=== PATIENT | female | born 1940 | race Caucasian/White ===

== ENCOUNTER 2017-06-05 19:31 | Inpatient (IN) | payer MEDICARE, OTHER ==
[~2017-06-05] VITALS: Ht 172.7 cm; Wt 61.7 kg
[~2017-06-05 19:31] MED LIST: DICY10CA53 PO; ESOM40CA PO; HYDR-3240 PO; LEVO100T5 PO; META10TA PO; MONT10TA9 PO; PRED5TAB PO
[2017-06-05] MEDS ORDERED: SODIUM CHLORIDE 0.9% 1,000 ML IV ONE (19:51)
[2017-06-05] MEDS ORDERED: ACETAMINOPHEN 325 MG TABLET ONE (19:54)
[2017-06-05] MEDS ORDERED: ACETAMINOPHEN 325 MG TABLET PO ONE (20:00)
[2017-06-05] MEDS ORDERED: ALBUTEROL/IPRATROPIUM 2.5MG/0.5MG, 3 ML NPPB ONE (20:00)
[2017-06-05] MEDS ORDERED: SODIUM CHLORIDE FLUSH 10ML SYR IVF ONE (20:00)
[2017-06-05] MEDS ORDERED: chemo IV (20:43)
[2017-06-05 21:13] LABS: BLOOD UREA NITROGEN 10 mg/dL (7-18)
[2017-06-05] MEDS ORDERED: POTASSIUM CHLORIDE 20 MEQ in SODIUM CHLORIDE 0.9% 250 ML IV ONE (21:30)
[2017-06-05] MEDS ORDERED: AZITHROMYCIN 500 MG in SODIUM CHLORIDE 0.9% 250 ML IV ONE (21:30)
[2017-06-05] MEDS ORDERED: SODIUM CHLORIDE 0.9% 1,000ML IVBOLUS ONE (21:30)
[2017-06-05] MEDS ORDERED: POTASSIUM CHLORIDE 20 MEQ TAB.ER.PRT PO ONE (21:30)
[2017-06-05] MEDS ORDERED: POTASSIUM CHLORIDE 20 MEQ TAB.ER.PRT ONE (21:37)
[2017-06-05] MEDS ORDERED: CEFTRIAXONE PMX 1GM/50ML 50 ML ONE (21:38)
[2017-06-05] MEDS: CEFTRIAXONE PMX 1GM/50ML 50 ML IV SCH (22:30)
[2017-06-05] MEDS ORDERED: ACETAMINOPHEN 325 MG TABLET PO PRN (22:30)
[2017-06-05] MEDS ORDERED: POLYETHYLENE GLYCOL 17 GM PACKET PO PRN (22:30)
[2017-06-05] MEDS ORDERED: LABETALOL 5MG/ML 40ML VIAL IVPush PRN (22:30)
[2017-06-05] MEDS ORDERED: CEFTRIAXONE PMX 1GM/50ML 50 ML IV ONE (22:30)
[2017-06-05] MEDS ORDERED: morphine SULFATE 10 MG/ML, 1ML IVPush PRN (22:30)
[2017-06-05] MEDS ORDERED: DOCUSATE 100 MG CAPSULE PO PRN (22:30)
[2017-06-05] MEDS ORDERED: BISACODYL 10 MG SUPP PR PRN (22:30)
[2017-06-05] MEDS: NS + 20MEQ KCL 1,000 ML IV SCH (23:34)
[2017-06-05] MEDS: DOXYCYCLINE 100 MG in DEXTROSE 5% 250 ML IV SCH (23:34)
[2017-06-05] MEDS: ENOXAPARIN 40 MG/0.4 ML SQ SCH (23:35)
[2017-06-05 23:48] VITALS: BP 125/64
[2017-06-06 01:11] VITALS: BP 115/68
[2017-06-06] MEDS: HYDROcodone/APAP 5/325 TABLET PO PRN ×3 (02:30→23:03)
[2017-06-06 04:50] LABS: BLOOD UREA NITROGEN 8 mg/dL (7-18)
[2017-06-06 07:11] VITALS: BP 120/70
[2017-06-06] MEDS: POTASSIUM CHLORIDE 20 MEQ TAB.ER.PRT PO SCH ×2 (08:36→16:50)
[2017-06-06] MEDS: DOXYCYCLINE 100 MG in DEXTROSE 5% 250 ML IV SCH ×2 (10:56→23:02)
[2017-06-06] MEDS: ONDANSETRON 2MG/ML, 2ML IVPush PRN ×3 (11:49→23:03)
[2017-06-06 14:24] VITALS: BP 133/63
[2017-06-06] MEDS: NS + 20MEQ KCL 1,000 ML IV SCH (16:50)
[2017-06-06] MEDS: IRON SUCROSE COMPLEX 100MG/5ML IV SCH (16:50)
[2017-06-06 19:48] VITALS: BP 123/57
[2017-06-06] MEDS: CEFTRIAXONE PMX 1GM/50ML 50 ML IV SCH (22:14)
[2017-06-06] MEDS: ENOXAPARIN 40 MG/0.4 ML SQ SCH (22:15)
[2017-06-07] MEDS: HYDROcodone/APAP 5/325 TABLET PO PRN (00:15)
[2017-06-07 01:13] VITALS: BP 110/56
[2017-06-07] MEDS: ONDANSETRON 2MG/ML, 2ML IVPush PRN ×2 (07:54→13:51)
[2017-06-07 08:30] VITALS: BP 119/64
[2017-06-07 08:33] LABS: BLOOD UREA NITROGEN 4 mg/dL (7-18)
[2017-06-07] MEDS: POTASSIUM CHLORIDE 20 MEQ TAB.ER.PRT PO SCH ×2 (08:39→17:51)
[2017-06-07] MEDS: IRON SUCROSE COMPLEX 100MG/5ML IV SCH (08:39)
[2017-06-07] MEDS: DOXYCYCLINE 100 MG in DEXTROSE 5% 250 ML IV SCH ×2 (10:27→23:00)
[2017-06-07] MEDS ORDERED: PROCHLORPERAZINE 10MG TABLET PO PRN (12:00)
[2017-06-07 13:49] VITALS: BP 123/63
[2017-06-07] MEDS ORDERED: predniSONE 5 MG/5 ML ORAL SOL PO SCH (16:30)
[2017-06-07] MEDS ORDERED: ALBUTEROL/IPRATROPIUM 2.5MG/0.5MG, 3 ML ONE (18:41)
[2017-06-07] MEDS: ALBUTEROL/IPRATROPIUM 2.5MG/0.5MG, 3 ML NPPB SCH (18:51)
[2017-06-07 19:03] VITALS: BP 142/58
[2017-06-07] MEDS: CEFTRIAXONE PMX 1GM/50ML 50 ML IV SCH (22:18)
[2017-06-07] MEDS: MONTELUKAST 10 MG TABLET PO SCH (22:18)
[2017-06-07] MEDS: ENOXAPARIN 40 MG/0.4 ML SQ SCH (22:21)
[2017-06-08 01:18] VITALS: BP 129/65
[2017-06-08] MEDS: HYDROcodone/APAP 5/325 TABLET PO PRN ×2 (02:34→22:32)
[2017-06-08] MEDS: ALBUTEROL/IPRATROPIUM 2.5MG/0.5MG, 3 ML NPPB SCH (06:42)
[2017-06-08 07:16] VITALS: BP 123/65
[2017-06-08] MEDS: IRON SUCROSE COMPLEX 100MG/5ML IV SCH (10:06)
[2017-06-08] MEDS: POTASSIUM CHLORIDE 20 MEQ TAB.ER.PRT PO SCH (10:06)
[2017-06-08 14:35] VITALS: BP 153/76
[2017-06-08] MEDS ORDERED: ALBUTEROL/IPRATROPIUM 2.5MG/0.5MG, 3 ML NPPB PRN (15:00)
[2017-06-08 19:42] VITALS: BP 131/66
[2017-06-08] MEDS: DOXYCYCLINE 100MG TABLET PO SCH (19:57)
[2017-06-08] MEDS: MONTELUKAST 10 MG TABLET PO SCH (19:57)
[2017-06-08] MEDS: ENOXAPARIN 40 MG/0.4 ML SQ SCH (22:32)
[2017-06-09 02:45] VITALS: BP 113/55
[2017-06-09 05:33] LABS: BLOOD UREA NITROGEN 5 mg/dL (7-18)
[2017-06-09 06:35] VITALS: BP 117/70
[2017-06-09] MEDS ORDERED: DOXY100T PO (09:36)
[2017-06-09] MEDS: DOXYCYCLINE 100MG TABLET PO SCH (09:38)
[2017-06-09] MEDS ORDERED: LACT1CAP24 PO (09:54)
== END 2017-06-09 15:00 | disposition home or self-care (01) | DRG 871 ==
LOC: ED 21:59 → EDIP 23:06 → 3NW 23:09
PROVIDERS: ADMIT Internal Medicine; ATTEND Internal Medicine
DX: A41.9 Sepsis, unspecified organism (principal); J18.9 Pneumonia, unspecified organism; J96.01 Acute respiratory failure with hypoxia; E44.0 Moderate protein-calorie malnutrition; E87.1 Hypo-osmolality and hyponatremia; C50.919 Malignant neoplasm of unspecified site of unspecified female breast; D50.9 Iron deficiency anemia, unspecified; E03.9 Hypothyroidism, unspecified; E87.6 Hypokalemia; J45.909 Unspecified asthma, uncomplicated; M19.90 Unspecified osteoarthritis, unspecified site; K21.9 Gastro-esophageal reflux disease without esophagitis; K57.90 Diverticulosis of intestine, part unspecified, without perforation or abscess without bleeding; E55.9 Vitamin D deficiency, unspecified; Z96.641 Presence of right artificial hip joint; Z90.12 Acquired absence of left breast and nipple; Z85.3 Personal history of malignant neoplasm of breast; Z90.5 Acquired absence of kidney; Z92.21 Personal history of antineoplastic chemotherapy; Z68.28 Body mass index [BMI] 28.0-28.9, adult
CPT/HCPCS: 36415; 71010; 80048; 81003; 82040; 82728; 83540; 83550; 83605; 83735; 84145; 84466; 85025; 87040; 87070; 87205; 93005; 94640; 96361; 96365; 96375; J0456; J0696; J1650; J1756; J2405; J3480; J7060; J7620; Q0164; J7030; J7050; J7512

== ENCOUNTER 2020-11-26 10:31 | Emergency (ER) | payer MEDICARE, OTHER ==
[~2020-11-26] VITALS: Ht 172.7 cm; Wt 68.8 kg
[~2020-11-26 10:31] MED LIST changes: +DOXY100T PO; +LACT1CAP24 PO; -MONT10TA9 PO; +MONT10TA96 PO; +chemo IV
[2020-11-26] MEDS ORDERED: MORPHINE SULFATE 4 MG/ML, 1ML ONE (11:27)
[2020-11-26] MEDS ORDERED: ONDANSETRON 2MG/ML, 2ML ONE (11:27)
[2020-11-26] MEDS ORDERED: SODIUM CHLORIDE 0.9% 1,000 ML IV ONE (11:30)
[2020-11-26] MEDS ORDERED: ONDANSETRON 2MG/ML, 2ML IVPush ONE (11:30)
[2020-11-26] MEDS ORDERED: SODIUM CHLORIDE FLUSH 10ML SYR IVF ONE ×2 (11:30)
[2020-11-26] MEDS: MORPHINE SULFATE 4 MG/ML, 1ML IVPush PRN ×2 (11:35→12:00)
--- NOTE | 2020-11-26 11:36 | NUR ---
IV started, pt medicated[facility]. Pt alert and orientataed, on monitor.
[2020-11-26 11:39] LABS: BASOPHILS % (AUTO) 1 % (0-1); EOSINOPHILS % (AUTO) 8 % (1-7); LYMPHOCYTES % (AUTO) 13 % (22-44); MEAN CORPUSCULAR HEMOGLOBIN 28.6 pg (27.0-34.8); MEAN CORPUSCULAR HGB CONC 33.2 g/dL (32.4-35.8); MEAN PLATELET VOLUME 9.4 fL (7.4-10.4); MONOCYTES % (AUTO) 9 % (2-9); NEUTROPHILS % (AUTO) 70 % (42-75); PLATELET COUNT 247 x10^3/uL (130-400); RED BLOOD COUNT 4.04 x10^6/uL (3.82-5.3); RED CELL DISTRIBUTION WIDTH 14.7 % (9.6-15.2)
[2020-11-26 11:42] LABS: MD NO
[2020-11-26 11:47] LABS: MICROSCOPIC NOT IND
[2020-11-26 11:50] LABS: ALANINE AMINOTRANSFERASE 17 U/L (12-78); ALBUMIN 3.6 g/dL (3.4-5.0); ANION GAP 5 mmol/L (5-15); CALCIUM 8.9 mg/dL (8.5-10.1); CHLORIDE 111 mmol/L (98-107); CREATININE 0.94 mg/dL (0.55-1.02)
[2020-11-26 11:52] LABS: ALKALINE PHOSPHATASE 79 U/L (45-117); BILIRUBIN,TOTAL 0.4 mg/dL (0.2-1.0); TOTAL PROTEIN 6.9 g/dL (6.4-8.2)
--- NOTE | 2020-11-26 12:00 | NUR ---
pATIENT REASSESSED, IN PAIN STILL AT THIS TIME. MORPHINE GIVEN. AT BEDSIDE. AWAITING REULTS. PT ON BP AND SPO2 MONITOR
[2020-11-26 13:18] VITALS: BP 152/71
== END 2020-11-26 13:27 | disposition home or self-care (01) ==
LOC: ED 12:19
DX: R10.31 Right lower quadrant pain (principal); M79.18 Myalgia, other site; Z85.3 Personal history of malignant neoplasm of breast
CPT/HCPCS: 36415; 74176; 80053; 81003; 85025; 96361; 96374; 96375; 99284; J2270; J2405; J7030; 99285